=== PATIENT | male | born 1940 | race Caucasian/White ===

== ENCOUNTER 2017-03-20 03:04 | Inpatient (IN) ==
[2017-03-20] MEDS ORDERED: NS 1,000 ML IV ONE (03:13)
[2017-03-20] MEDS ORDERED: METOCLOPRAMIDE 10mg/2ml INJECTION IVP ONE (03:13)
--- NOTE | 2017-03-20 03:23 | Emergency Department Report ---
Dizziness HPI - General Stated Complaint: Dizzy, Fall Time Seen by Provider: 03/20/17 03:05 Source: patient, family, EMS Mode of arrival: EMS Limitations: no limitations - History of Present Illness HPI Narrative: Pt seen earlier in ER and diagnosed with ascending colitis. Pt was feeling much better after meds and refused any further treatment and went home. He was given Rx for pain and nausea. Tonight he had an episode of dizziness when he tried to go to the bathroom and his called EMS after he fell and she could not get him up. Initially patient refused transport, but when the patient was found to be progressive and persistently hypotensive, with presyncope again after going to the toilet, EMS personnel and the patient's convinced him come back in for evaluation. Patient was found to have 2 separate blood pressures under 90 systolic, no tachycardia, hypotension was associated with significant symptomatology of dizziness and lightheadedness. Patient was also thought to have a fever of 102 via skin temperature probe, but denies any fevers or chills. Patient also denies any areas of pain or tenderness after the fall. Blood sugar was elevated at 206, and 200 cc saline bolus was given in route. MD complaint: dizziness - Related Data Home Medications Medication Instructions Recorded Confirmed Rosuvastatin Calcium [Crestor] 20 mg PO HS #0 12/19/10 03/20/17 Tamsulosin HCl [Flomax] 0.4 mg PO HS #0 12/19/10 03/20/17 Insulin Lispro (Humalog) 150 unit SQ INS PUMP #0 01/28/14 03/20/17 Amlodipine Besylate 5 mg PO HS #0 03/18/14 03/20/17 Omeprazole 20 mg PO BID #0 03/18/14 03/20/17 Aspirin 81 mg PO DAILY #0 01/21/16 03/20/17 Febuxostat [Uloric] 80 mg PO DAILY #0 01/21/16 03/20/17 Spironolactone 25 mg PO DAILY #0 01/21/16 03/20/17 Carisoprodol 350 mg PO HS PRN #60 tab 04/09/16 03/20/17 APAP/Codeine 300/30 (#3) [Tylenol 1 tab PO Q4H PRN 03/19/17 03/20/17 with Codeine #3 (300/30)] Albuterol Sulfate [Proair Hfa] 1 puff INH BID PRN 03/19/17 03/20/17 Diclofenac [Voltaren] 1 gm TP DAILY PRN 03/19/17 03/20/17 Dutasteride [Avodart] 0.5 mg PO DAILY 03/19/17 03/20/17 Fluconazole [Diflucan] 100 mg PO DAILY 03/19/17 03/20/17 Furosemide [Lasix] 60 mg PO DAILY 03/19/17 03/20/17 Metoprolol Tartrate [Lopressor] 25 mg PO DAILY 03/19/17 03/20/17 Mirabegron [Myrbetriq] 25 mg PO HS 03/19/17 03/20/17 Nitroglycerin 0.4 mg SL Q5MIN3 PRN 03/19/17 03/20/17 Olopatadine HCl [Patanase] 1 spray NS DAILY PRN 03/19/17 03/20/17 Oxycodone/Apap 7.5/325 [Percocet 1 tab PO Q4H PRN 03/19/17 03/20/17 7.5/325] Pantoprazole Sodium [Protonix] 40 mg PO BID 03/19/17 03/20/17 Vitamin B Complex [Balanced B-100] 1 tab PO BID 03/19/17 03/20/17 Previous Rx's Medication Instructions Recorded Hydrocodone/APAP 5/325 [[place] 1 tab PO Q6H PRN #12 tab 03/19/17 5/325] Hyoscyamine Sulfate [Levsin-Sl] 0.125 mg SL Q6H PRN #20 tab.subl 03/19/17 MetroNIDAZOLE [Flagyl] 500 mg PO BID #14 tab 03/19/17 Ondansetron [Zofran Odt] 1 tab PO Q6HR PRN #12 tab 03/19/17 Allergies Allergy/AdvReac Type Severity Reaction Status Date / Time morphine Allergy Mild cardiac Verified 03/20/17 03:32 arrest adhesive Allergy Unknown MORE THAN Verified 03/20/17 03:32 24 HOURS BREAKS DOWN SKIN AND CAUSES ABSCESSES iodine AdvReac Unknown kidney Verified 03/20/17 03:32 issues metformin AdvReac Unknown kidney Verified 03/20/17 03:32 issues-states is an ANSAID NSAIDS (Non-Steroidal AdvReac Unknown kidney Verified 03/20/17 03:32 Anti-Inflamma issues Review of Systems All systems: reviewed and negative except as stated PFSH Patient Stated Medical History Cataracts Yes Hypertension Yes Other Cardiology Yes: 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 Appendix 1954 Prostate 1992. Lt Rotator cuff 1996 2009 Rt 2005. Laser Eye surg 2007. Lt TKA 2010. Gallbladder -. Vertoplasty spine -2015. Nose surg 2003. Carotid Artery Blockage 2011 & 2016 Family History: Family History (Last Reviewed 11/24/16 @ 13:44 by Josie Johnson Andrez) Unknown No problems noted. - Social History Smoking status: Former smoker Physical Exam - Limitations Limitations: no limitations - General General appearance: alert, obese - Normal Exams: Head:: Normocephalic without trauma Eyes:: Pupils are PERRLA w/ EOMI, No scleral icterus, irritation, or foreign bodies noted ENMT:: No facial trauma, nasal exudates, pharyngeal erythema, or exudates are noted Neck:: Full range of motion, without adenopathy, JVD, bruits or thyromegaly Chest/Respirations:: Clear all neal, with good airflow, and symmetry bilaterally Cardiovascular:: Regular rate and rhythm, without murmur or gallop, Pulses 2+ all extremities, capillary refill, <2 seconds all extremities Lymphatic:: No lymphadenopathy, or lymphedema noted Musculoskeletal:: No tenderness, or deformity noted, good range of motion, all extremities Integumentary:: No rashes, hives, or bruising noted, hair and nails, without abnormality Neurological:: Patient is alert, and oriented, cranial nerves, motor/sensory/ cerebellar, exams w/o gross deficits, to observation Psychiatric:: Patient exhibits, appropriate attention, emotion and affect - Abdominal Exam Abdominal exam: Present: soft, tenderness (minimal right lower quadrant tenderness, no guarding no rebounding), hyperactive bowel sounds. Absent: distention, guarding, rebound, organomegaly, trauma, incision, psoas sign, obturator sign, heel tap sign, Graham's sign, Rovsing's sign, tenderness at McBurney's Point, mass, pulsatile mass, hernia, scar Course Vital Signs Temperature 98.9 F 03/20/17 03:08 Pulse Rate 74 03/20/17 03:08 Respiratory Rate 14 03/20/17 03:08 Blood Pressure 96/53 03/20/17 03:08 Pulse Oximetry 98 03/20/17 03:08 Temperature 98.9 F 03/20/17 03:08 Pulse Rate 74 03/20/17 03:51 Respiratory Rate 18 03/20/17 03:51 Blood Pressure 126/60 03/20/17 03:51 Pulse Oximetry 96 03/20/17 03:51 Dizziness - MDM Narrative Medical decision making narrative: Patient given 1 L normal saline IV fluid bolus and Reglan 10 mg IV for nausea. - CBC shows significant shift into 29,000 white blood cells, elevated lactate at 4.1, and creatinine has gone from 1.7-2.6. After 1300 cc normal saline total in the ER, patient is doing much better, blood pressures normalized to 126/60. IV bolus up to 3300 cc was ordered through the ER, patient was also started on antibiotics including Cipro IV and Flagyl IV, and will be admitted inpatient to the medical floor to Dr. Zhang. - Lab Data Result diagrams: 03/20/17 03:20 03/20/17 03:20 Lab Results 03/20/17 03/20/17 Range/Units 03:20 03:20 WBC 29.1 H* D (4.5-11.0) T/MM3 RBC 5.04 (4.50-5.90) M/MM3 Hgb 14.5 (13.5-17.5) GM/DL Hct 43.7 (41-53) % MCV 86.7 (80-100) UM3 MCH 28.8 (26-34) UUG MCHC 33.2 (31-37) GM/DL RDW Std Deviation 42.5 (36.9-50.2) FL Plt Count 274 (130-400) T/MM3 MPV 11.1 (9.4-12.4) UM3 Immature Gran % (Auto) Not performed Neut % (Auto) Not performed Lymph % (Auto) Not performed [place] % (Auto) Not performed Eos % (Auto) Not performed Baso % (Auto) Not performed Neut # (Auto) Not performed Lymph # (Auto) Not performed [place] # (Auto) Not performed Eos # (Auto) Not performed Baso # (Auto) Not performed Abs Immat Gran (auto) Not performed Turbidity < 20 (0-20) Sodium 145 H (134-144) MEQ/L Potassium 3.6 (3.6-5) MEQ/L Chloride 104 (98-107) MEQ/L Carbon Dioxide 23 (22-30) MEQ/L Anion Gap 18 H (5-15) MEQ/L BUN 46.0 H (9-20) MG/DL Creatinine 2.6 H D (0.8-1.5) MG/DL GFR Calculation 24 BUN/Creatinine Ratio 18 (6-26) RATIO Glucose 155 H (75-110) MG/DL Calculated Osmolality 294 H (261-280) MOSM/KG Calcium 9.0 (8.4-10.2) MG/DL Icterus Index < 2 (0-7) Plasma Lactate 4.7 H* (0.6-2.2) MMOL/L Specimen Hemolysis 19 (0-25) Critical Care Time Critical Care Time: Yes Total Critical Care Time: 40 Attestation: Patient has severe sepsis, with hypotension, requiring fluid resuscitation aggressive diagnostic testing and therapeutic intervention including IV fluids, IV antibiotics, and close monitoring. Patient also had mild hypoxemia on arrival , and was given supplemental oxygen with ongoing oxygen saturation monitoring. Disposition Clinical Impression: Severe sepsis, Bacterial colitis Disposition: 02 To [facility] Acute Care Condition: Improved Prescriptions: No Action Tamsulosin HCl [Flomax] 0.4 mg PO HS #0 Rosuvastatin Calcium [Crestor] 20 mg PO HS #0 Insulin Lispro (Humalog) 150 unit SQ INS PUMP #0 Amlodipine Besylate 5 mg PO HS #0 Omeprazole 20 mg PO BID #0 Pantoprazole Sodium [Protonix] 40 mg PO BID Fluconazole [Diflucan] 100 mg PO DAILY Dutasteride [Avodart] 0.5 mg PO DAILY Oxycodone/Apap 7.5/325 [Percocet 7.5/325] 1 tab PO Q4H PRN PRN Reason: Pain APAP/Codeine 300/30 (#3) [Tylenol with Codeine #3 (300/30)] 1 tab PO Q4H PRN PRN Reason: Pain Furosemide [Lasix] 60 mg PO DAILY Metoprolol Tartrate [Lopressor] 25 mg PO DAILY Nitroglycerin 0.4 mg SL Q5MIN3 PRN PRN Reason: CHEST TIGHTNESS Vitamin B Complex [Balanced B-100] 1 tab PO BID Hyoscyamine Sulfate [Levsin-Sl] 0.125 mg SL Q6H PRN #20 tab.subl PRN Reason: Cramps MetroNIDAZOLE [Flagyl] 500 mg PO BID #14 tab Ondansetron [Zofran Odt] 1 tab PO Q6HR PRN #12 tab PRN Reason: Nausea Aspirin 81 mg PO DAILY #0 Febuxostat [Uloric] 80 mg PO DAILY #0 Spironolactone 25 mg PO DAILY #0 Carisoprodol 350 mg PO HS PRN #60 tab PRN Reason: Prn Orders Diclofenac [Voltaren] 1 gm TP DAILY PRN PRN Reason: Pain Albuterol Sulfate [Proair Hfa] 1 puff INH BID PRN PRN Reason: Prn Orders Olopatadine HCl [Patanase] 1 spray NS DAILY PRN PRN Reason: Prn Orders Mirabegron [Myrbetriq] 25 mg PO HS Hydrocodone/APAP 5/325 [[place] 5/325] 1 tab PO Q6H PRN #12 tab PRN Reason: Pain Referrals: Nu Bourne DO [Family Provider] - - Seen By: physician
--- OUTSIDE RECORDS SUMMARY | 2017-03-20 03:43 | External Medical Summary ---
:1940 Author Organization eClinicalWorks Care Team Providers Name Role Phone Ashli [place] Provider Role Unavailable Allergies, Adverse Reactions, Alerts Substance Reaction Event Type Tape 1/2"x10yd *medical Devices* Info Not Available Non Drug Allergy Morphine Derivatives Info Not Available Non Drug Allergy Nsaids Info Not Available Non Drug Allergy Problems Problem Type Condition Code Onset Dates Condition Status Problem Other specified counseling V65.49 Inactive Assessment Diabetes with ophthalmic 250.52 Active manifestations, type II or unspecified type, uncontrolled Problem Peripheral neuropathy 356.9 Active Problem Diabetic retinopathy 250.50 Active Problem History of diabetic ulcer of foot V12.29 Active Problem History of gout V12.29 Active Problem Diabetes with ophthalmic 250.52 Inactive manifestations, type II or unspecified type, uncontrolled Problem Hypertension 401.9 Active Problem Hyperlipidemia 272.4 Active Medications Medication Code Code Instructions Start End Status Dosage System Date Date Clobetasol [facility] 36590-75 0.05 % External not defined Propionate E 01-15 Mometasone Furoate [facility] 61402-89 0.1 % External not defined 70-46 Percocet [facility] 23551-56 5-325 MG Oral not defined 19-30 Avodart [facility] 44855-98 0.5 MG Oral 1 not defined 12-04 daily Losartan [facility] 49823-31 100-12.5 MG Oral not defined Potassium-HCTZ 77-22 1 daily protonix ND 0 Oral 1 tab Amlodipine [facility] 93962-93 10 MG Orally 1 tablet Besylate 02-20 Once a day Uloric [facility] 91327-87 80 MG Orally 1 tablet 16-30 Once a day Prilosec OTC [facility] 23696-05 20 MG Oral not defined 905 Flomax [facility] 11187-02 0.4 MG Oral 1 not defined 58-01 daily Robaxin-750 [facility] 50303-06 750 MG Oral not defined 49-63 Keflex [facility] 75031-96 500 MG Orally 1 capsule 81-02 Twice a day Hydrocortisone [facility] 49330-67 2.5 % External not defined 28-66 Solaraze [facility] 76287-83 3 % Transdermal not defined 07-07 Glucagon Emergency [facility] 82069-64 1 mg Injection August as directed inject as 2014 directed for severe hypoglycemia Patanase [facility] 76644-07 0.6 % Nasal not defined Crestor [facility] 70582-68 20 MG Oral 1 not defined 52-39 daily Humalog [facility] 24481-83 100 UNIT/ML via pump 02-06 Subcutaneous 115 u daily via insulin pump Tramadol HCl [facility] 58514-48 50 MG Oral every 1 58-01 six hours, as needed Tylenol with NDC 0 300-30 MG Oral not defined Codeine #3 Accu-Chek Chika NDC 0 1 In Vitro 8X's Mar 18, Plus daily DX: 250.50 2013 Diclofenac Sodium [facility] 01196-48 0.1 % Ophthalmic not defined 06-02 Lasix [facility] 95707-37 40 MG Oral 1 tablet 60-13 tewice daily OxyContin [facility] 92231-04 20 MG Orally 1 tablet 16-30 every 12 hrs Procedures Procedure Coding System Code Date Office Visit, Est Pt., Level 3 CPT-4 09684 August 13, 2014 GLYCATED HEMOGLOBIN TEST CPT-4 31224 August 13, 2014 Vital Signs Date/Time: August 13, 2014 Blood Pressure Systolic 108 mm Hg Weight 270 lbs Height 67 in BMI 42.28 Index Respiratory Rate 16 /min Cardiac Monitoring Heart Rate 84 /min Blood Pressure Diastolic 50 mm Hg Results No Known Results Summary Purpose eClinicalWorks Submission
--- OUTSIDE RECORDS SUMMARY | 2017-03-20 03:43 | External Medical Summary ---
:1940 Author Organization eClinicalWorks Care Team Providers Name Role Phone Ashli [place] Provider Role Unavailable Allergies, Adverse Reactions, Alerts Substance Reaction Event Type Tape 1/2"x10yd *medical Devices* Info Not Available Non Drug Allergy Morphine Derivatives Info Not Available Non Drug Allergy Nsaids Info Not Available Non Drug Allergy Problems Problem Type Condition ICD-9 Code Onset Dates Condition Status Problem Other specified counseling V65.49 Inactive Assessment Diabetes with ophthalmic 250.52 Active manifestations, type II or unspecified type, uncontrolled Problem Peripheral neuropathy 356.9 Active Problem Diabetic retinopathy 250.50 Active Problem History of diabetic ulcer of V12.29 Active foot Problem History of gout V12.29 Active Problem Diabetes with ophthalmic 250.52 Inactive manifestations, type II or unspecified type, uncontrolled Problem Hypertension 401.9 Active Problem Hyperlipidemia 272.4 Active Medications Medication Code Code Instructions Start End Status D[place] [address]-02 80 MG Orally 1 tablet 16-30 [place] [address]-42 3 % Transdermal not defined 03-01 [place] [address]-26 0.6 % Nasal not defined 32-30 [place] [address]-73 20 MG Oral not defined 905 [place] [address]-01 5-325 MG Oral not defined 19-[address] [facility] 78719-34 100 UNIT/ML via pump 10-01 Subcutaneous 115 [place] [address]-52 0.5 MG Oral 1 not defined 12-04 daily protonix NDC 0 Oral 1 tab Tylenol with NDC 0 300-30 MG Oral not defined Codeine #3 [place] [address]-96 0.05 % External not defined Propionate E 01-15 [place] [address]-63 20 MG Orally 1 tablet 16-30 every 12 [place] [address]-03 50 MG Oral every 1 58-01 six [place], [place] [address]-31 10 MG Orally 1 tablet Besylate 02-20 Once a day Lasix [facility] 52103-83 40 MG Oral 1 tablet 60-13 tewice daily Robaxin-[address] [facility] 19982-63 750 MG Oral not defined 49-63 Diclofenac Sodium [facility] 27513-43 0.1 % Ophthalmic not defined 06-02 [place] [address]-74 0.1 % External not defined 70-46 Accu-Chek Chika NDC 0 1 In Vitro 8X's Mar 18 Plus daily DX: 250.50 2013 Glucagon Emergency [facility] 95225-04 1 mg Injection August as directed inject as 2014 [place] [address]-63 0.4 MG Oral 1 not defined 58-01 daily Hydrocortisone [facility] 64452-31 2.5 % External not defined - Crestor [facility] 10624-27 20 MG Oral 1 not defined 52-39 daily Keflex [facility] 14638-36 500 MG Orally 1 capsule 81-02 Twice a day Procedures Procedure Coding System Code Date Billed by outside source CPT-4 NOBLL November 14, 2014 Office Visit, Est Pt., Level 3 CPT-4 54912 November 14, 2014 GLYCATED HEMOGLOBIN TEST CPT-4 75809 November 14, 2014 Vital Signs Date/Time: November 14, 2014 BMI 41.34 Index Weight 264 lbs Height 67 in Results Name Result Date Reference Range Unit Abnormality Flag Hemoglobin A1c (HbA1c) Microalbumin/Creatinine [place], [place] [id number] ----Microalbumin, Urine 3.7 [id number] 0.0-17.0 ug/mL ----Microalb/Creat Ratio 14.5 [id number] 0.0-30.0 mg/g creat ----Creatinine, Urine 25.6 [id number] 22.0-328.0 mg/dL Summary Purpose eClinicalWorks Submission
--- OUTSIDE RECORDS SUMMARY | 2017-03-20 03:44 | External Medical Summary ---
:1940 Author Organization eClinicalWorks Care Team Providers Name Role Phone Ashli [place] Provider Role Unavailable Allergies No Known Allergies Problems Problem Type Condition Code Onset Dates Condition Status Problem Diabetes with ophthalmic 250.52 Inactive manifestations, type II or unspecified type, uncontrolled Problem Other specified counseling V65.49 Inactive Problem History of diabetic ulcer of foot V12.29 Active Problem Peripheral neuropathy 356.9 Active Problem DM (diabetes mellitus), type 2, E11.39 Active uncontrolled w/ophthalmic complication Problem Hyperlipidemia 272.4 Active Problem History of gout V12.29 Active Problem Diabetic retinopathy 250.50 Active Problem Hypertension 401.9 Active Medications No Known Medications Results No Known Results Summary Purpose [employer] Submission
--- OUTSIDE RECORDS SUMMARY | 2017-03-20 03:44 | External Medical Summary ---
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 Medications Medication Code Code Instructions Start End Status Dosage System Date Date Tylenol with NDC 0 300-30 MG Oral 1 tablet Codeine #3 PRN Hydrocortisone [place] 57489-5 2.5 % External 1 application 028-66 PRN as needed Mometasone Furoate NDC 63094-6 0.1 % External not defined 470-46 Crestor NDC 87050-0 5 MG Orally 1 tablet 755-90 Once a day Flomax NDC 39125-3 0.4 MG Oral 1 not defined 058-01 daily Amlodipine NDC 18547-7 10 MG Orally 1 tablet Besylate 102-20 Once a day Uloric NDC 69086-9 80 MG Orally 1 tablet 516-30 Once a day Inset Infusion Set NDC 0 none change Feb 20, as directed 23" 9MM every 2 days as 2014 directed due to high insulin dose Patanase NDC 25638-9 0.6 % Nasal not defined 332-30 Solaraze NDC 91058-2 3 % Transdermal 1 application 803-01 Twice a day to affected area Percocet NDC 74087-0 5-325 MG Oral 1 tablet as 619-30 every 6 hrs needed protonix NDC 0 Oral once 1 tab daily Accu-Chek Spirit NDC 0 none change Feb 20, as directed Cartridge every 2 days 2014 due to high insulin dose Glucagon Emergency NDC 48725-2 1 mg Injection August as directed 031-01 inject as 2014 [place] [address]-1 100 UNIT/ML via pump 510-01 Subcutaneous 150 units daily as directed Prilosec OTC NDC 61742-1 20 MG Oral 1 tablet 5905 twice daily OxyContin NDC 31285-2 20 MG Orally 1 tablet 616-30 every 12 hrs Accu-Chek Chika NDC 0 1 In Vitro 8X's Mar 18, BG Plus daily 2013 Lasix NDC 77483-9 40 MG Oral Once 1 tablet 060-13 a day Clobetasol NDC 73420-9 0.05 % External not defined Propionate E 301-15 PRN Procedures Procedure Coding System Code Date Office Visit, Est Pt., Level 4 CPT-4 95009 November 28, 2015 GLYCATED HEMOGLOBIN TEST CPT-4 87989 November 28, 2015 Vital Signs Date/Time: November 28, 2015 Blood Pressure Systolic 130 mm Hg Weight 274.8 lbs Height 67 in BMI 43.04 Index Respiratory Rate 16 /min Cardiac Monitoring Heart Rate 74 /min Blood Pressure Diastolic 58 mm Hg Results Name Result Date Reference Range Unit Abnormality Flag Hemoglobin A1c (HbA1c) ----Hemoglobin A1c 8.0% [id number] Summary Purpose eClinicalWorks Submission
--- OUTSIDE RECORDS SUMMARY | 2017-03-20 03:44 | External Medical Summary ---
[...] Type Condition Code Onset Dates Condition Status Assessment Peripheral neuropathy 356.9 Active Assessment History of diabetic ulcer of foot V12.29 Active Assessment Diabetes with ophthalmic 250.52 Active manifestations, type II or unspecified type, uncontrolled Medications Medication Code Code Instructions Start End Status Dosage System Date Date Robaxin-[address] [facility] 10584-74 750 MG Oral not 49-10 defined Hydrocortisone [facility] 02901-63 2.5 % External not 28-66 defined Solaraze [facility] 70835-27 3 % Transdermal not 03-01 [place] [address]-72 0.05 % External not Propionate E 01-15 [place] [address]-66 0.1 % External not 70-46 [place] [address]-21 0.5 MG Oral 1 not 12-04 daily defined Uloric [facility] 20691-44 80 MG Orally 1 tablet 16-30 [place] [address]-69 0.1 % Ophthalmic not 25 defined protonix NDC 0 [place] [address]-68 40 MG Oral 1 1/2 not 60-13 [place] [address]-06 20 MG Oral 1 not 52-39 [place] [address]-61 100-12.5 MG Oral not Potassium-HCTZ 77-22 1 [place] [address]-68 0.6 % Nasal not 32-30 defined Tylenol with NDC 0 300-30 MG Oral not Codeine #[place] [address]-90 100 UNIT/ML via pump 10- Subcutaneous 112 u [place] [address]-37 10 MG Orally 1 tablet Besylate 02-20 Once a day Prilosec OTC [facility] 71753-82 20 MG Oral not 905 defined Percocet [facility] 82106-33 5-325 MG Oral not 19-30 defined Flomax [facility] 06382-10 0.4 MG Oral 1 not 58-01 daily defined Procedures Procedure Coding System Code Date GLYCATED HEMOGLOBIN TEST CPT-4 75210 Feb 04, 2014 Office Visit, Est Pt., Level 4 CPT-4 05282 Feb 04, 2014 Vital Signs Date/Time: Feb 04, 2014 Blood Pressure Systolic 102 mm Hg Weight 286 lbs Height 67 in BMI 44.79 Index Respiratory Rate 12 /min Cardiac Monitoring Heart Rate 60 /min Blood Pressure Diastolic 68 mm Hg Results Name Result Date Reference Range Unit Abnormality Flag Hemoglobin A1c (HbA1c) ----Hemoglobin A1c 6.7 [id number] Summary Purpose eClinicalWorks Submission
[2017-03-20] MEDS ORDERED: DEXTROSE 50% SYRINGE 50ml (1 AMP) IVP PRN (04:11)
[2017-03-20] MEDS ORDERED: GLUCOSE ORAL GEL 40% 37.5gm PO PRN (04:11)
[2017-03-20] MEDS ORDERED: MetroNIDAZOLE PB 500 MG/100 ML BAG IV SCH ×2 (04:15→14:00)
[2017-03-20] MEDS: SALINE FLUSH 10ml SYRINGE IVF PRN ×2 (04:15→22:22)
[2017-03-20] MEDS ORDERED: CIPROFLOXACIN PB 400 MG/200 ML BAG IV SCH (04:15)
[2017-03-20] MEDS: NS 1,000 ML IV SCH ×4 (04:21→13:26)
[2017-03-20] MEDS ORDERED: SALINE FLUSH 10ml SYRINGE IV PRN ×2 (05:04)
[2017-03-20] MEDS ORDERED: MORPHINE SULFATE 4mg INJECTION IVP PRN (05:04)
[2017-03-20 05:09] VITALS: BMI 43.7
--- NOTE | 2017-03-20 06:07 | History & Physical Report ---
History of Present Illness Date: 03/20/17 Chief complaint: Near syncope HPI: This is a 76 year old male who presents to the [facility] ER for a second time in the past 12 hours. He was discharged in the ER earlier after being seen with abdominal discomfort. He was diagnosed with colitis of his ascending colon and sent home with flagyl, zofran and [place]. He evidently was not interested in admission at that point in time per the ER physician.He apparently had some dizziness and a near syncopal spell at home. 911 was called. Upon EMS arrival, his blood pressure was 84 systolic. He had another near syncopal event while on the toilet and his blood pressure was reported at 79 systolic. He was brought back to the ER shortly thereafter. He received some IV fluids en route by EMS. Laboratory evaluation upon arrival back to the ER revealed elevated white blood cell count from earlier, renal injury and a lactic acid level of 4.7. He has been given IV cipro, flagyl, and a 30 ml/kg IVF bolus has been started. He has been admitted to the medical floor for further care. This encounter was performed via the use of telemedicine technology Review of Systems All systems PM: 10-point ROS was reviewed, no additional remarkable complaints except PFSH Patient Stated Medical History Cataracts Yes Hypertension Yes Other Cardiology Yes: known blockage "on side of heart" Diabetes Mellitus Type 2 Yes Clinic Medical History (Last Reviewed 11/24/16 @ 13:44 by RANDALL Morton) Primary osteoarthritis of right knee (Acute Medical) Neuropathy (Chronic Medical) Osteoporosis (Chronic Medical) Kidney disease (Chronic Medical) GERD (gastroesophageal reflux disease) (Chronic Medical) Cataracts, bilateral (Chronic Medical) Diabetes (Chronic Medical) Peripheral artery disease (Chronic Medical) High cholesterol (Chronic Medical) High blood pressure (Chronic Medical) Surgical History: Tonsils & Adenoids 1950. Appendix 1954. Prostate 1992. Lt Rotator cuff 1996& 2009 Rt rotator cuff 2005. Laser Eye surg 2007. Lt TKA 2010. Gallbladder 01-22-2016. Vertoplasty spine . Nose surg -2003. Carotid Artery Blockage 2011 & 2016 Family History: Family History (Last Reviewed 11/24/16 @ 13:44 by RANDALL Morton) Unknown No problems noted. - Social History Smoking status: Former smoker Medications Home Medications Medication Instructions Recorded Confirmed Type Rosuvastatin Calcium [Crestor] 20 mg PO HS #0 12/19/10 03/20/17 History Tamsulosin HCl [Flomax] 0.4 mg PO HS #0 12/19/10 03/20/17 History Insulin Lispro (Humalog) 150 unit SQ INS PUMP #0 01/28/14 03/20/17 History Amlodipine Besylate 5 mg PO HS #0 03/18/14 03/20/17 History Omeprazole 20 mg PO BID #0 03/18/14 03/20/17 History Aspirin 81 mg PO DAILY #0 01/21/16 03/20/17 History Febuxostat [Uloric] 80 mg PO DAILY #0 01/21/16 03/20/17 History Spironolactone 25 mg PO DAILY #0 01/21/16 03/20/17 History Carisoprodol 350 mg PO HS PRN #60 tab 04/09/16 03/20/17 History APAP/Codeine 300/30 (#3) [Tylenol 1 tab PO Q4H PRN 03/19/17 03/20/17 History with Codeine #3 (300/30)] Albuterol Sulfate [Proair Hfa] 1 puff INH BID PRN 03/19/17 03/20/17 History Diclofenac [Voltaren] 1 gm TP DAILY PRN 03/19/17 03/20/17 History Dutasteride [Avodart] 0.5 mg PO DAILY 03/19/17 03/20/17 History Fluconazole [Diflucan] 100 mg PO DAILY 03/19/17 03/20/17 History Furosemide [Lasix] 60 mg PO DAILY 03/19/17 03/20/17 History Metoprolol Tartrate [Lopressor] 25 mg PO DAILY 03/19/17 03/20/17 History Mirabegron [Myrbetriq] 25 mg PO HS 03/19/17 03/20/17 History Nitroglycerin 0.4 mg SL Q5MIN3 PRN 03/19/17 03/20/17 History Olopatadine HCl [Patanase] 1 spray NS DAILY PRN 03/19/17 03/20/17 History Oxycodone/Apap 7.5/325 [Percocet 1 tab PO Q4H PRN 03/19/17 03/20/17 History 7.5/325] Pantoprazole Sodium [Protonix] 40 mg PO BID 03/19/17 03/20/17 History Vitamin B Complex [Balanced B-100] 1 tab PO BID 03/19/17 03/20/17 History Allergies Allergy/AdvReac Type Severity Reaction Status Date / Time morphine Allergy Mild cardiac Verified 03/20/17 03:32 arrest adhesive Allergy Unknown MORE THAN Verified 03/20/17 03:32 24 HOURS BREAKS DOWN SKIN AND CAUSES ABSCESSES iodine AdvReac Unknown kidney Verified 03/20/17 03:32 issues metformin AdvReac Unknown kidney Verified 03/20/17 03:32 issues-states is an ANSAID NSAIDS (Non-Steroidal AdvReac Unknown kidney Verified 03/20/17 03:32 Anti-Inflamma issues Exam Vital Signs: Temperature 98.8 F 03/20/17 05:00 Pulse Rate 74 03/20/17 05:00 Respiratory Rate 24 03/20/17 05:00 Blood Pressure 140/62 H 03/20/17 05:00 Pulse Oximetry 97 03/20/17 05:00 Height/Weight/BMI: Height 1.68 m Weight 123 kg Body Mass Index 43.7 - Constitutional Present: no acute distress, somnolent - Routine HEENT Exam Head: Present: normocephalic, atraumatic - Routine Respiratory Exam Present: CTA bilaterally. Absent: accessory muscle use, dyspnea - Routine Cardiovascular Exam Present: S1, S2 - Routine Abdominal Exam Present: soft Comments: Morbidly obese - Routine Extremities Exam Absent: edema Results - Labs CBC & Chem 7: 03/20/17 10:56 03/20/17 10:56 Assessment and Plan (1) Septic shock Current visit: Yes Status: Acute (2) Severe sepsis Current visit: Yes Status: Acute (3) Bacterial colitis Current visit: Yes Status: Acute Assessment and Plan: Assesment Severe sepsis, colitis- present on admission Clinical dehydration secondary to above Syncope Acute knee injury on chronic kidney disease stage 3 secondary to pre-renal causes Insulin-dependent diabetes mellitus Diabetic peripheral neuropathy Peripheral arterial disease Hypertension by history Plan Patient will be admitted under full inpatient status to the medical floor. His BP has improved with IV fluid bolus. Repeat lactic acid level has been ordered for 7:45 a.m. this morning. Will need further reassessment thereafter. The large majority of his home medications have been held this morning. His prognosis is guarded at this time, but he is presently demonstrating improving clinical status. The arrival of his this morning will help delineate further history, as he is not terribly conversant this morning. DVT prophylaxis: SQ heparin Alessandro Zamorano M.D.: Dr. Zhang's note reviewed. Mr. Romero interviewed and examined. Old records reviewed. CC: Abdominal pain HPI: Mr. Romero a 76-year-old male with diabetes and multiple complications. He was seen in the emergency room yesterday afternoon for LLQ abdominal pain with nausea and vomiting at which time CT of the abdomen suggested to show segmental colitis and the patient was discharged home with Flagyl and symptomatic treatment. Later he became dizzy and had a syncopal episode at home when he tried to ambulate to the bathroom. His called EMS because she was unable to get him up independently. When EMS arrived the patient was hypotensive and had systolic blood pressures less than 90 on 2 occasions without tachycardia. He remained symptomatic while EMS was present but initially refused transportation to the emergency room. Eventually he agreed to transport due to persistent symptoms. EMS described temperature of 102 by skin probe. The patient reports he's felt cold but denies chills or sweats. Abdominal symptoms and left lower quadrant pain started 2 days ago and have been accompanied by some diarrhea, nausea and vomiting initially followed by dry heaves, poor oral intake, and decreased urine output with patient reporting no urine output since sometime yesterday. He denied preceding dysuria. Reports he's had a cough with some sputum production but has not felt short of breath. He's had prior knee replacement but has not had knee pain. When reevaluated in the emergency room yesterday evening he had marked leukocytosis with white count of 29.1 left shift and lactic acid of 4.7. Blood pressure stabilized after initial fluid bolus. IV antibiotics were initiated and full fluid bolus for septic shock was given prior to hospitalization. PH/SH/FH: agree with that recorded above by with addition of morbid obesity, small vessel CAD with EF 65% by recent cardiac catheterization, BPH. SH-patient does not drink alcohol, Dr. Nu Bourne his primary care physician , Dr. Yariel Duncan is his curer foam rubber, and Dr. Tamayo is his registered art therapist. His Nisha is his DPOA and the patient is a full code. FH-positive for diabetes mellitus ROS: 10 point review as previously reported-only symptom I elicited was numbness in lower extremities beyond those described above. EXAM: General-restless male, frequent repositions himself, 98.5, 95, 24, 105/67, 95%- 3 L HEENT-PERRL, EOMI without nystagmus, conjunctiva clear, sclera anicteric, conjugate gaze, facial structures symmetric, oropharynx dry, neck supple and without adenopathy Lungs-respirations nonlabored, good airflow, breath sounds diminished at the right base posteriorly Cardiac-regular rhythm, decreased heart tones Abd-obese, soft, mild diffuse tenderness without guarding, localized increased tenderness for lateral left lower quadrant but again no guarding present Ext-without edema; left knee without warmth or inflammation and can flex and extend knee without difficulty. Skin-hyperpigmentation lower extremities, abrasions on knuckles of hands; no generalized rash Neuro-cranial nerves 3-12 grossly intact, sensation grossly intact 4 extremities, MAEW, bursar equal, moving all extremities spontaneously/frequently Psych-fatigued, slightly irritable DATA: White count in the ER yesterday early afternoon was 15.5 with 2 bands increasing to 29.1 with 15 bands overnight and currently is 23.3 with 17% bands Hemoglobin 14.5-12.7 following hydration Currently potassium 3.3, phosphorus 1.4, anion gap currently 11 (18 on presentation overnight), creatinine has increased from 1.7 yesterday afternoon to 2.9, liver enzymes unremarkable, troponin 0.191 Lactic acid 4.7-4.9; procalcitonin 18.3 UA 1-3 WBC, +1 leukocyte esterase, negative ketones CT abdomen and pelvis reviewed by myself demonstrates no significant intra- abdominal pathology-nighthawk reading suggested slight thickening in the ascending colon and possibly rectosigmoid but formal reading is negative. My review questions slight rectal thickening but I can't appreciate colonic abnormalities elsewhere. There is no evidence of renal obstruction and CT was done without contrast. Chest x-ray pending EKG by my review demonstrates no acute process A/P: Septic shock-unknown source Acute renal failure/anuria Abdominal pain, possible colitis Hypoxia-new Diabetes mellitus with retinopathy, nephropathy, neuropathy, and peripheral vascular disease Hypophosphatemia, hypokalemia CAD Syncope Critically ill male, fluid bolus given for septic shock however lactic acid remains elevated. Transfer to the ICU for intensive monitoring. Central line to be placed-discussed with Dr. Guerra. Antibiotics expanded with initiation of vancomycin and Zosyn for sepsis of unknown primary. Cultures pending. Discontinue Cipro as nursing describes increased restlessness/irritability this morning. Continue fluid replacement, replace potassium/phosphorus. Bumex now, Syed catheter being placed. Monitor blood sugars every 2-4 hours. Repeat lactic acid in several hours. DVT Prophylaxis: SQ Heparin Resuscitation Status: Full Code - Time spent with patient Time with patient PN: other (75 minutes-critical care) Sepsis Assessment - Evaluation Possible source: GI tract/intra-abdominal, unknown Confirmed Suspected Infection: Yes SIRS Criteria: temperature > or equal to 100.4 (per EMS), WBC > or equal to 12, 000, Bands > or equal to 10% Severe Sepsis: SBP < 90 (x2 per EMS), lactate > or equal to 2.0 mg/dl, Creatinine >2.0 mg/dL, urine output <0.5 mL/kg/hr [id number] Septic Shock: Lactate > 4 mg/dL Hospital Course Summary Disclaimer: The visit summary below is not to be considered part of the above Progress Note. Hospital Course: 03/20/17 12:12 Septic shock-unknown primary Acute renal failure/anuria Abdominal pain, possible colitis Diabetes mellitus with retinopathy, nephropathy, neuropathy, and peripheral vascular disease Hypophosphatemia, hypokalemia CAD Syncope Critically ill male, fluid bolus given for septic shock however lactic acid remains elevated. Transfer to the ICU for intensive monitoring. Central line to be placed-discussed with Dr. Guerra. Antibiotics expanded with initiation of vancomycin and Zosyn for sepsis of unknown primary. Cultures pending. Discontinue Cipro as nursing describes increased restlessness/irritability this morning. Continue fluid replacement, replace potassium/phosphorus. Bumex now, Syed catheter being placed. Monitor blood sugars every 2-4 hours. Repeat lactic acid in several hours.
[2017-03-20] MEDS ORDERED: INSULIN PUMP MC SCH (08:00)
[2017-03-20] MEDS: HEPARIN SUB-Q 5,000 UNITS/0.5 ML INJECTION SQ SCH ×3 (09:52→17:36)
[2017-03-20] MEDS ORDERED: VANCOMYCIN - PHARMACY CONSULT MC ONE (10:16)
[2017-03-20] MEDS ORDERED: BUMETANIDE 2.5mg/10ml INJECTION IVP ONE ×3 (11:26→20:35)
--- NOTE | 2017-03-20 11:29 | Pharmacy Consult-Antibiotics ---
Pharmacy Consult-Vancomycin - Laboratory Information WBC 23.3 T/MM3 (4.5-11.0) H 03/20/17 10:56 BUN 48.0 MG/DL (9-20) H 03/20/17 10:56 Creatinine 2.9 MG/DL (0.8-1.5) H D 03/20/17 10:56 - Consult Information Consult noted by Dr Zamorano to begin vancomycin on Mr Romero, who is 76yo and has sepsis of an unknown origin. His serum creatinine is 2.6. Vancomycin 1500mg IV q36h is ordered. We will continue to monitor. Thank you.
[2017-03-20] MEDS: ONDANSETRON 4 MG/2 ML INJECTION IVP PRN ×2 (11:49→17:58)
[2017-03-20] MEDS: PIPERACILLIN/TAZOBACTAM 2.25 GM in NS 100 ML IV SCH ×3 (14:20→23:26)
[2017-03-20] MEDS: POTASSIUM PHOSPHATE IV SCH (14:21)
[2017-03-20] MEDS: NS IV SCH (14:21)
[2017-03-20] MEDS ORDERED: OLOPATADINE HCL PO PRN (17:11)
[2017-03-20] MEDS: PANTOPRAZOLE 40 MG INJECTION IVP SCH (17:38)
[2017-03-20] MEDS ORDERED: LEVOFLOXACIN PB 750 MG/150 ML BAG IV SCH (18:30)
[2017-03-20] MEDS: HYDROMORPHONE 2 MG/ML INJECTION IVP PRN (18:43)
[2017-03-20] MEDS ORDERED: ALBUTEROL 2.5mg/3ml (0.083%) NEB AEROSOL PRN (18:48)
[2017-03-20] MEDS ORDERED: ALBUTEROL/IPRATROPIUM 2.5mg-0.5mg/3ml NEB AEROSOL PRN (18:48)
[2017-03-20] MEDS ORDERED: CARISOPRODOL 350 MG TABLET PO PRN (18:49)
[2017-03-20] MEDS ORDERED: ACETAMINOPHEN 325 MG TABLET PO PRN (18:51)
[2017-03-20] MEDS ORDERED: METOCLOPRAMIDE 10mg/2ml INJECTION IVP PRN (18:51)
[2017-03-20] MEDS ORDERED: APAP/DIPHENHYDRAMINE 500 MG/25 MG TABLET PO SCH (21:00)
[2017-03-20] MEDS: INSULIN ASPART 100unit/ml INJECTION SQ PRN (22:21)
[2017-03-21] MEDS: INSULIN ASPART 100unit/ml INJECTION SQ PRN ×2 (00:48→04:24)
[2017-03-21] MEDS: ONDANSETRON 4 MG/2 ML INJECTION IVP PRN ×3 (00:48→11:56)
[2017-03-21] MEDS: SALINE FLUSH 10ml SYRINGE IVF PRN ×2 (00:49→04:19)
[2017-03-21] MEDS: HEPARIN SUB-Q 5,000 UNITS/0.5 ML INJECTION SQ SCH (00:54)
[2017-03-21] MEDS: HYDROCODONE/APAP 5mg/325mg TABLET PO PRN ×2 (01:30→08:35)
[2017-03-21] MEDS: NS IV SCH ×2 (02:19→06:56)
[2017-03-21] MEDS: POTASSIUM PHOSPHATE IV SCH ×2 (02:19→06:56)
[2017-03-21] MEDS ORDERED: ASPIRIN 325 MG TABLET PO SCH (05:37)
[2017-03-21] MEDS: PIPERACILLIN/TAZOBACTAM 2.25 GM in NS 100 ML IV SCH ×3 (05:41→18:59)
[2017-03-21] MEDS: NS 1,000 ML IV SCH ×2 (05:42→17:52)
[2017-03-21] MEDS ORDERED: ENOXAPARIN 120 MG/0.8 ML INJECTION SQ SCH (05:45)
[2017-03-21] MEDS ORDERED: FALL RISK - PHARMACY CONSULT MC ONE (07:28)
--- NOTE | 2017-03-21 07:39 | XRay Report ---
Indication: post IJ placement PROCEDURE: XR chest 1V: Encounter: Initial Comparison: January 23, 2017 Findings: Left subclavian central venous line in place. The tip cannot be definitively visualized. No gross pneumothorax. Hypoinflation with prominent interstitial markings again noted. Cardiomediastinal contours are stable. Impression: I cannot visualize the tip of the left subclavian central venous catheter. Repeat exam is recommended. .
--- NOTE | 2017-03-21 07:39 | Procedure Note ---
DATE OF PROCEDURE 03/20/2017 DIAGNOSIS BEFORE PROCEDURE Sepsis from unknown source. DIAGNOSIS AFTER PROCEDURE Sepsis from unknown source. PROCEDURE Insertion of left subclavian multilumen central venous catheter. SURGEON Dr. Guerra ANESTHESIA Local. DESCRIPTION OF OPERATION The patient was placed in his bed in the Intensive Care Unit. The patient was placed in Trendelenburg position. The right side of the neck, right supraclavicular area, right infraclavicular area, right shoulder, suprasternal notch area, left side of the neck, left supraclavicular area, left infraclavicular area and left shoulder were all prepped with ChloraPrep solution. Sterile drapes were placed. Skin at a percutaneous venipuncture site at the left infraclavicular area was infiltrated with 1% Xylocaine without epinephrine to provide local anesthesia. A small incision was made at this area. Percutaneous venipuncture of the left subclavian vein was then performed. The vein was entered easily on the first needlestick. There was a good return of dark red nonpulsatile blood. A flexible guidewire was passed through the needle and through the left subclavian vein down into the superior vena cava. A 7-Hungarian, triple-lumen, 20 cm long, radiopaque, polyurethane multilumen central venous catheter was flushed with heparinized saline solution. The multilumen central venous catheter was inserted into the left subclavian vein and down into the superior vena cava with Seldinger technique. A Biopatch antimicrobial dressing was placed around the multilumen central venous catheter at the skin entrance site. The multilumen central venous catheter was secured to the skin adjacent to the catheter insertion site with 3- 0 silk sutures. A sterile field was maintained. The position of the patient was changed from Trendelenburg position to a sitting position. A portable upright chest x-ray was performed. The chest x-ray was reviewed. The chest x- ray did appear to show good position of the multilumen central venous catheter and no evidence of pneumothorax. A Tegaderm dressing was applied to the multilumen central venous catheter insertion site. Sterile technique was maintained throughout procedure. The patient did appear to tolerate the procedure well. [facility], [place]
[2017-03-21] MEDS ORDERED: ALBUTEROL/IPRATROPIUM 2.5mg-0.5mg/3ml NEB AEROSOL PRN (08:15)
[2017-03-21] MEDS: PANTOPRAZOLE 40 MG INJECTION IVP SCH (08:55)
[2017-03-21] MEDS ORDERED: ASPIRIN 81 MG CHEWABLE TABLET PO SCH (09:00)
[2017-03-21] MEDS: HYDROMORPHONE 2 MG/ML INJECTION IVP PRN ×2 (09:00→15:37)
--- NOTE | 2017-03-21 09:50 | Progress Note ---
- Date 03/21/17 Subjective: He complains of pain all over. No specific site is worse. Says he feels lethargic after taking a [place] 5 about an hour ago. Says he has kept liquids down. He says his breathing is OK. Reports a cough, nonproductive. Says he had dry heaves overnight. Objective Vital signs: Temperature 97.8 F 03/21/17 08:07 Pulse Rate 80 03/21/17 08:30 Respiratory Rate 30 H 03/21/17 08:30 Blood Pressure 109/54 03/21/17 08:30 Pulse Oximetry 95 03/21/17 08:30 Rhythm: Normal Sinus Rhythm Height/Weight/BMI: Height 5 ft 6 in Weight 127.3 kg Body Mass Index 43.7 - Constitutional Present: well nourished, well developed - Routine HEENT Exam Eye: Present: EOMI ENT: Present: mucous membranes moist, dentition normal - Routine Respiratory Exam Present: decreased breath sounds, crackles - Routine Cardiovascular Exam Present: RRR. Absent: murmur - Routine Abdominal Exam Present: soft, tenderness. Absent: rebound, guarding - Routine Extremities Exam Present: edema Comments: trace - Routine Skin Exam Present: dry, warm - Routine Neurological Exam Present: alert, oriented X3, CN II-XII intact - Routine Psychiatric Exam Present: normal affect Results - Labs CBC & Chem 7: 03/21/17 04:25 03/21/17 14:51 Microbiology Results: Microbiology 03/20/17 21:00 Port/Picc Blood Culture - Preliminary Culture Initiated - Results Pending 03/20/17 21:09 Port/Picc Blood Culture - Preliminary Culture Initiated - Results Pending - ABG Interpretation ABG results: 03/20/17 20:08 ABG pH 7.290 L ABG pCO2 44 ABG pO2 55 L ABG HCO3 21 L ABG Total CO2 22.6 L ABG O2 Saturation 84.0 L ABG Base Excess -5.3 L Assessment and Plan (1) Severe sepsis Current visit: Yes Status: Acute (2) Bacterial colitis Current visit: Yes Status: Acute (3) Septic shock Current visit: Yes Status: Acute Assessment and Plan: Septic shock-unknown source E. coli bacteremia Acute renal failure Abdominal pain, possible colitis Diabetes mellitus with retinopathy, nephropathy, neuropathy, and peripheral vascular disease Hyperphosphatemia AMI Syncope Acute hypoxic respiratory failure Continue Levaquin, Zosyn, Vanco. WBC up to 34.7 with 22% bands. Lactic acid down to 2.0. Consult Dr. Philippe. BCx postive in 1 or 2. Repeat BCx. Procalcitonin up to 34. Creatinine is up but now having urine output. UO slowing down after Bumex last night. Continuing IVF. Repeat Bumex. Avoid hypotension. Patient wants to manage his blood sugars with his insulin pump. He says his will bring the program he needs to improve the control. Now with hyperphosphatemia s/p replacement and d/t worsening renal function. Continue pain meds for abdominal pain. Consult Dr. Tamayo for elevated troponin. Patient is septic and with worsening renal function. He denies chest pain. ASA, lovenox. Holding BB d/t hypotension. Continue O2, breathing treatments. He refused BiPAP last night. Patient's oxygenation is worsening. IVF dc'd. Another dose of iv bumex given. Cr up to 3.9. 700 ml urine out over 10 hours. d/w Dr. Dima Duncan. Plan for transfer. Cannot do dialysis here if that is needed. Dr. Don Blanco is accepting the pt at [facility] Sepsis Assessment - Evaluation Possible source: unknown Severe Sepsis: SpO2 <90% or ventilated, lactate > or equal to 2.0 mg/dl, Creatinine >2.0 mg/dL, urine output <0.5 mL/kg/hr [id number] Hospital Course Summary Disclaimer: The visit summary below is not to be considered part of the above Progress Note. Septic shock-unknown source E. coli bacteremia Acute renal failure Abdominal pain, possible colitis Diabetes mellitus with retinopathy, nephropathy, neuropathy, and peripheral vascular disease Hyperphosphatemia CAD with elevated troponin Syncope Continue Levaquin, Zosyn, Vanco. WBC up to 34.7 with 22% bands. Lactic acid down to 2.0. Consult Dr. Philippe. BCx postive in 1 or 2. Repeat BCx. Procalcitonin up to 34. Creatinine is up but now having urine output. UO slowing down after Bumex last night. Continuing IVF. Repeat Bumex. Avoid hypotension. Patient wants to manage his blood sugars with his insulin pump. He says his will bring the program he needs to improve the control. Now with hyperphosphatemia s/p replacement and d/t worsening renal function. Continue pain meds for abdominal pain. Consult Dr. Tamayo for elevated troponin. Patient is septic and with worsening renal function. He denies chest pain. ASA, lovenox. Holding BB d/t hypotension. Continue O2, breathing treatments. He refused BiPAP last night. Hospital Course: 03/20/17 12:12 Septic shock-unknown primary Acute renal failure/anuria Abdominal pain, possible colitis Diabetes mellitus with retinopathy, nephropathy, neuropathy, and peripheral vascular disease Hypophosphatemia, hypokalemia CAD Syncope Critically ill male, fluid bolus given for septic shock however lactic acid remains elevated. Transfer to the ICU for intensive monitoring. Central line to be placed-discussed with Dr. Guerra. Antibiotics expanded with initiation of vancomycin and Zosyn for sepsis of unknown primary. Cultures pending. Discontinue Cipro as nursing describes increased restlessness/irritability this morning. Continue fluid replacement, replace potassium/phosphorus. Bumex now, Syed catheter being placed. Monitor blood sugars every 2-4 hours. Repeat lactic acid in several hours. 03/21/17 10:29 Septic shock-unknown source E. coli bacteremia Acute renal failure Abdominal pain, possible colitis Diabetes mellitus with retinopathy, nephropathy, neuropathy, and peripheral vascular disease Hyperphosphatemia CAD with elevated troponin Syncope Continue Levaquin, Zosyn, Vanco. WBC up to 34.7 with 22% bands. Lactic acid down to 2.0. Consult Dr. Philippe. BCx postive in 1 or 2. Repeat BCx. Procalcitonin up to 34. Creatinine is up but now having urine output. UO slowing down after Bumex last night. Continuing IVF. Repeat Bumex. Avoid hypotension. Patient wants to manage his blood sugars with his insulin pump. He says his will bring the program he needs to improve the control. Now with hyperphosphatemia s/p replacement and d/t worsening renal function. Continue pain meds for abdominal pain. Consult Dr. Tamayo for elevated troponin. Patient is septic and with worsening renal function. He denies chest pain. ASA, lovenox. Holding BB d/t hypotension. Continue O2, breathing treatments. He refused BiPAP last night. 03/21/17 10:31
--- NOTE | 2017-03-21 10:19 | XRay Report ---
Indication: hypoxia PROCEDURE: XR chest 1V: Encounter: Initial Comparison: March 20, 2017 Findings: Left subclavian central venous line in place. Again the tip is quite difficult to localize but may be within the lower SVC. No pneumothorax. Lungs are hyperinflated with evidence of at least moderate pulmonary edema. Small pleural effusions. Cardiac silhouette remains enlarged. Right basilar airspace consolidation. Impression: Moderate pulmonary edema. Possible superimposed right lower lobe pneumonia or aspiration. .
[2017-03-21] MEDS ORDERED: CLOPIDOGREL 75 MG TABLET PO ONE (14:04)
--- NOTE | 2017-03-21 14:15 | Cardiology Consult Note ---
History of Present Illness Consult reason: known to you Chief complaint: eleavted troponin History of present illness: 76 yo wm with known CAD and DM admitted with falls and syncope.He was initially seen with an acute GI illness treated with Flagyl and Rx was apparently never started.pt in ED was admitted to CCU /hospitalist service and found to have sepsis NEGRO dehydration and resp failure. He also grew E Coli in blood. denies and cp or back pain. He is "hurting all over"and cannot specify a location . EKG 03/20 evening ,showed NSR inferior ST elevation with reciprocal St depression ,Q in III,EKG this morning improved with mostly just inferior inverted T wave minimal residual ST elevation ,almost back to baseline and no ST diagnostic elevation or depression . I was asked to see pt this morning in consultation d/t elevated troponin about 2. pt was sen about 11 am.He denies cp or upper back/arm or neck pain. He just hurtes "all over" .he s not feeling well. He is weak. His urine output is poor and is requiring O2 NC for resp distress. pt is being tretaed with initial fluids diuretics breathing Rx and iV ATB. He is also on full dose Lovenox adjusted for renal Fx and ASA. pt has known cad with good LVFX treated medically d/t small vessel disease and pt being a poor surgical candidate d/t poor functional capacity caused by chronic low back pain .Pt told me that he much preferred conservative medical Rx. He never had any angina and his presentation was more of a gradual excercise intolerance and SOA with diastolic CHF. he "never felt bad enough to go through open heart surgery" when we discussed that option following his heart cath. Review of Systems All systems PM: 10-point ROS was reviewed, no additional remarkable complaints except - Constitutional Constitutional: Present: weakness - Cardiovascular Cardiovascular: Present: syncope, dyspnea on exertion, as per HPI - Respiratory Respiratory: Present: dyspnea, wheezing - Gastrointestinal Gastrointestinal: Absent: coffee ground emesis, hematemesis, hematochezia - Psychiatric Psychiatric: Absent: anxiety, depression PFSH Patient Stated Medical History Cataracts Yes Hypertension Yes Other Cardiology Yes: known blockage "on side of heart" Diabetes Mellitus Type 2 Yes Clinic Medical History (Last Reviewed 11/24/16 @ 13:44 by Josie Johnson Andrez) Severe sepsis (Acute Medical) Bacterial colitis (Acute Medical) Septic shock (Acute Medical) Primary osteoarthritis of right knee (Acute Medical) Neuropathy (Chronic Medical) Osteoporosis (Chronic Medical) Kidney disease (Chronic Medical) GERD (gastroesophageal reflux disease) (Chronic Medical) Cataracts, bilateral (Chronic Medical) Diabetes (Chronic Medical) Peripheral artery disease (Chronic Medical) High cholesterol (Chronic Medical) High blood pressure (Chronic Medical) Colitis (Inactive Medical) Surgical History: Tonsils & Adenoids 1950. Appendix 1954. Prostate 1992. Lt Rotator cuff 1996& 2009 Rt rotator cuff 2005. Laser Eye surg 2007. Lt TKA 2010. Gallbladder 01-22-2016. Vertoplasty spine . Nose surg . Carotid Artery Blockage 2011 & 2016 Family History: Family History (Last Reviewed 11/24/16 @ 13:44 by Josie Johnson Andrez) Unknown No problems noted. DM - Social History Smoking status: Former smoker Household members: spouse service: Yes ([email or web address]) Current residence: Apartment/Private Home Medications Home Medications Medication Instructions Recorded Confirmed Type Rosuvastatin Calcium [Crestor] 20 mg PO HS #0 12/19/10 03/20/17 History Tamsulosin HCl [Flomax] 0.4 mg PO HS #0 12/19/10 03/20/17 History Insulin Lispro (Humalog) 150 unit SQ INS PUMP #0 01/28/14 03/20/17 History Amlodipine Besylate 5 mg PO HS #0 03/18/14 03/20/17 History Omeprazole 20 mg PO BID #0 03/18/14 03/20/17 History Aspirin 81 mg PO DAILY #0 01/21/16 03/20/17 History Febuxostat [Uloric] 80 mg PO DAILY #0 01/21/16 03/20/17 History Spironolactone 25 mg PO DAILY #0 01/21/16 03/20/17 History Carisoprodol 350 mg PO HS PRN #60 tab 04/09/16 03/20/17 History APAP/Codeine 300/30 (#3) [Tylenol 1 tab PO Q4H PRN 03/19/17 03/20/17 History with Codeine #3 (300/30)] Albuterol Sulfate [Proair Hfa] 1 puff INH BID PRN 03/19/17 03/20/17 History Diclofenac [Voltaren] 1 gm TP DAILY PRN 03/19/17 03/20/17 History Dutasteride [Avodart] 0.5 mg PO DAILY 03/19/17 03/20/17 History Fluconazole [Diflucan] 100 mg PO DAILY 03/19/17 03/20/17 History Furosemide [Lasix] 60 mg PO DAILY 03/19/17 03/20/17 History Metoprolol Tartrate [Lopressor] 25 mg PO DAILY 03/19/17 03/20/17 History Mirabegron [Myrbetriq] 25 mg PO HS 03/19/17 03/20/17 History Nitroglycerin 0.4 mg SL Q5MIN3 PRN 03/19/17 03/20/17 History Olopatadine HCl [Patanase] 1 spray NS DAILY PRN 03/19/17 03/20/17 History Oxycodone/Apap 7.5/325 [Percocet 1 tab PO Q4H PRN 03/19/17 03/20/17 History 7.5/325] Pantoprazole Sodium [Protonix] 40 mg PO BID 03/19/17 03/20/17 History Vitamin B Complex [Balanced B-100] 1 tab PO BID 03/19/17 03/20/17 History Allergies Allergy/AdvReac Type Severity Reaction Status Date / Time morphine Allergy Mild cardiac Verified 03/20/17 03:32 arrest adhesive Allergy Unknown MORE THAN Verified 03/20/17 03:32 24 HOURS BREAKS DOWN SKIN AND CAUSES ABSCESSES iodine AdvReac Unknown kidney Verified 03/20/17 03:32 issues metformin AdvReac Unknown kidney Verified 03/20/17 03:32 issues-states is an ANSAID NSAIDS (Non-Steroidal AdvReac Unknown kidney Verified 03/20/17 03:32 Anti-Inflamma issues Exam Vital signs: Temperature 97.8 F 03/21/17 08:07 Pulse Rate 79 03/21/17 10:30 Respiratory Rate 28 H 03/21/17 13:40 Blood Pressure 126/60 03/21/17 10:30 Pulse Oximetry 97 03/21/17 13:40 - Constitutional mild distress, other (acutely ill) - Routine HEENT Exam Head: Present: normocephalic ENT: Present: mucous membranes dry - Routine Neck Exam Present: carotid bruit (L), normal carotid upstroke. Absent: JVD, lymphadenopathy, thyromegaly - Routine Respiratory Exam Present: wheezes (B ) - Routine Cardiovascular Exam Present: RRR, S1 (distant s1/s2), no murmur, S4 - Routine Abdominal Exam Present: soft, distended (mildly ). Absent: normoactive bowel sounds ( decreased ), organomegaly - Routine Extremities Exam Present: edema (trace B ankles). Absent: cyanosis, clubbing - Routine Skin Exam Present: intact. Absent: cyanosis, erythema - Routine Neurological Exam Present: alert, oriented X3, CN II-XII intact, moving all extremities, vision grossly intact, hearing grossly intact, normal speech. Absent: motor deficit, hemineglect, facial asymmetry - Routine Psychiatric Exam Present: normal affect, normal thought process, cooperative Results 03/21/17 04:25 03/21/17 14:51 Cardiac Enzymes 03/20/17 03/20/17 03/21/17 Range/Units 17:01 22:56 04:25 AST 40 (17-59) U/L Troponin I 0.343 H D 0.585 H D (0-0.12) ng/ml 03/21/17 Range/Units 04:25 AST (17-59) U/L Troponin I 1.920 H D (0-0.12) ng/ml CBC 03/21/17 Range/Units 04:25 WBC 34.7 H* D (4.5-11.0) T/MM3 RBC 3.96 L (4.50-5.90) M/MM3 Hgb 11.4 L (13.5-17.5) GM/DL Hct 35.7 L (41-53) % Plt Count 172 (130-400) T/MM3 Comprehensive Metabolic Panel 03/20/17 03/20/17 03/21/17 Range/Units 17:01 22:56 04:25 Sodium 142 142 143 (134-144) MEQ/L Potassium 4.3 D 4.1 4.6 (3.6-5) MEQ/L Chloride 110 H 109 H 109 H (98-107) MEQ/L Carbon Dioxide 22 21 L 19 L (22-30) MEQ/L BUN 51.0 H* 54.0 H* 56.0 H* (9-20) MG/DL Creatinine 3.2 H D 3.3 H 3.6 H D (0.8-1.5) MG/DL Glucose 166 H 171 H 187 H (75-110) MG/DL Calcium 7.6 L 7.2 L 7.1 L (8.4-10.2) MG/DL AST 40 (17-59) U/L ALT 41 (21-72) U/L Alkaline Phosphatase 63 (38-126) U/L Total Protein 5.7 L (6.3-8.2) G/DL Albumin 2.9 L (3.5-5.0) G/DL Intake and Output 03/20/17 03/21/17 03/21/17 22:59 06:59 14:59 Intake Total 2246.666 / 2246.666 1789.9610 / 1789.9610 202.083 / 202.083 Output Total 685 / 685 107 / 107 145 / 145 Balance 1561.666 / 7593.840 2258.9610 / 1682.9610 57.083 / 57.083 Intake: IV 1466.666 / 0954.186 6766.9610 / 1789.9610 202.083 / 202.083 Levofloxacin Pb 750 mg In 150 / 150 150 ml @ 100 mls/hr IV Q48H MAGEN Rx#:[id number] NS 500ml 500 ml @ 999.9 500 / 500 1000.00 / 1000.00 mls/hr IV .Q30M MAGEN Rx#: [id number] Ns 1,000 ml @ 125 mls/hr 6.25 / 6.25 102.083 / 102.083 IV .Q8H MAGEN Rx#:[id number] POTASSIUM PHOSPHATE (mEq) 716.666 / 716.835 844.2856 / 583.7110 20 meq In Ns 1,000 ml @ 125 mls/hr IV .Q8H3M MAGEN Rx#:[id number] Piperacillin/Tazobactam 2 100 / 100 200 / 200 100 / 100 .25 gm In Ns 100 ml @ 200 mls/hr IV Q6H MAGEN Rx#: [id number] Oral 780 / 780 Output: Urine Amount (Catheter) 685 / 685 107 / 107 145 / 145 Other: Urine Appearance Cloudy Cloudy Cloudy Sediment Sediment Small Blood Clots Hematuria Urine Color Yellow Dark Sakina Yellow Red Brown Weight 127.3 kg Patient Weight 03/22/17 06:59 Weight 127.3 kg - Imaging and Cardiology Stress echo: other (pharm. stress nuclear scan showed reversible ischmia which prompted heart cath ,see report) Cardiac cath: other (july 2016 3 v CAD OOAN41-42% LAD diffuse mid 4-50% stenosis,very large Ramus 40-50%, totally occluded small RCA and LCX at their mid segment see report.NL LVFX) Imaging & Cardiology Narrative: 03/22/17 11:14 B carotid doppler 50-69% LICA stenosis 2017 warranted observation and risk factor control 03/22/17 11:19 CXR pulm congestion echo reviewed at the bedside while being aqcuired. - EKG Interpretation EKG: sinus rhythm Assessment and Plan - Assessment and Plan acute inferior CO currently free from angina or ST elevation sepsis E Coli bactreremia resp failure w wheezing NEGRO acute multisystem failure/SIRS/sepsis DM asymptomatic carotid artery stenosis critocally ill pt . for his acute CO , medical Rx d/t acute morbidites as above, not a candidate for immediate invasive w/u. ASA Plavix Lovenox statin Rx no BB now d/t wheezing/resp failure concur with attempt at diuresis echo attn valves serial trop until peak and repeat EKG tomorrow dw pt and and hospitilast thank you Hospital Course Summary Disclaimer: The visit summary below is not to be considered part of the above Progress Note. Hospital Course: 03/20/17 12:12 Septic shock-unknown primary Acute renal failure/anuria Abdominal pain, possible colitis Diabetes mellitus with retinopathy, nephropathy, neuropathy, and peripheral vascular disease Hypophosphatemia, hypokalemia CAD Syncope Critically ill male, fluid bolus given for septic shock however lactic acid remains elevated. Transfer to the ICU for intensive monitoring. Central line to be placed-discussed with Dr. Guerra. Antibiotics expanded with initiation of vancomycin and Zosyn for sepsis of unknown primary. Cultures pending. Discontinue Cipro as nursing describes increased restlessness/irritability this morning. Continue fluid replacement, replace potassium/phosphorus. Bumex now, Syed catheter being placed. Monitor blood sugars every 2-4 hours. Repeat lactic acid in several hours. 03/21/17 10:29 Septic shock-unknown source E. coli bacteremia Acute renal failure Abdominal pain, possible colitis Diabetes mellitus with retinopathy, nephropathy, neuropathy, and peripheral vascular disease Hyperphosphatemia CAD with elevated troponin Syncope Continue Levaquin, Zosyn, Vanco. WBC up to 34.7 with 22% bands. Lactic acid down to 2.0. Consult Dr. Philippe. BCx postive in 1 or 2. Repeat BCx. Procalcitonin up to 34. Creatinine is up but now having urine output. UO slowing down after Bumex last night. Continuing IVF. Repeat Bumex. Avoid hypotension. Patient wants to manage his blood sugars with his insulin pump. He says his will bring the program he needs to improve the control. Now with hyperphosphatemia s/p replacement and d/t worsening renal function. Continue pain meds for abdominal pain. Consult Dr. Tamayo for elevated troponin. Patient is septic and with worsening renal function. He denies chest pain. ASA, lovenox. Holding BB d/t hypotension. Continue O2, breathing treatments. He refused BiPAP last night. 03/21/17 10:31
[2017-03-21] MEDS ORDERED: BUMETANIDE 2.5mg/10ml INJECTION IVP ONE (16:01)
--- NOTE | 2017-03-21 16:38 | Pharmacy Consult-Antibiotics ---
Pharmacy Consult-Vancomycin - Laboratory Information WBC 34.7 T/MM3 (4.5-11.0) H* D 03/21/17 04:25 BUN 61.0 MG/DL (9-20) H* 03/21/17 14:51 Creatinine 3.9 MG/DL (0.8-1.5) H D 03/21/17 14:51 Procalcitonin 34.60 NG/ML H* 03/21/17 04:25 - Consult Information Vancomycin consult: day 2 76 y.o. male with renal failure and diagnosis of Sepsis with unknown origin. Vancomycin per pharmacy protocol ordered empirically with Cipro. goal Vancomycin trough = 15 to 20 mcg/ml Due to renal failure a random Vancomycin level was obtained Vancomycin random = 9.77 mcg/ml, SCr = 3.9 mg/dl. SCr continues to rise up from 3.6 mg/dL this am. Since Vanco level is below our trough range, Will give Vancomycin 1,000 mg IV now and IV q36hrs. Will continue to monitor and make adjustments accordingly. Thank you.
--- NOTE | 2017-03-21 17:23 | XRay Report ---
Indication: hypoxia PROCEDURE: XR chest 1V: Encounter: Initial Comparison: March 21, 2017 at 0601 Findings: Motion artifact. Worsening in severe pulmonary edema. Continued airspace consolidation in the lower lobes, right greater than left. No pneumothorax. Heart size and mediastinal contours are stable. Left subclavian line. Impression: Worsening edema. .
--- NOTE | 2017-03-21 18:31 | Discharge Summary ---
Discharge Information Date of admission: 03/20/17 04:04 Attending Physician: Aron Silva IV, MD Primary care physician: Nu Bourne DO Consults: 03/20/17 12:18 Physician Consult [CONS] Routine Consulting Provider: Henri Guerra Reason For Exam: central line Ordering Provider has Notified Survey Chief: Yes 03/21/17 10:03 Physician Consult [CONS] Routine Consulting Provider: Dharmesh Tamayo Reason For Exam: elevated troponin Ordering Provider has Notified Survey Chief: Yes 03/21/17 10:04 Physician Consult [CONS] Routine Consulting Provider: Liliana Philippe Reason For Exam: sepsis Ordering Provider has Notified Survey Chief: Yes - Discharge Diagnosis (1) Severe sepsis Status: Acute (2) Bacterial colitis Status: Acute (3) Septic shock Status: Acute - Laboratory Labs: 03/21/17 04:25 03/21/17 14:51 - Microbiology Microbiology 03/21/17 10:19 Peripheral/Iv Start Blood Culture - Preliminary Culture Initiated - Results Pending 03/21/17 10:29 Peripheral/Iv Start Blood Culture - Preliminary Culture Initiated - Results Pending 03/20/17 21:00 Port/Picc Blood Culture - Preliminary Culture Initiated - Results Pending 03/20/17 21:09 Port/Picc Blood Culture - Preliminary Culture Initiated - Results Pending History of Present Illness HPI: This is a 76 year old male who presents to the [facility] ER for a second time in the past 12 hours. He was discharged in the ER earlier after being seen with abdominal discomfort. He was diagnosed with colitis of his ascending colon and sent home with agnieszka lee and Marii. He evidently was not interested in admission at that point in time per the ER physician.He apparently had some dizziness and a near syncopal spell at home. 911 was called. Upon EMS arrival, his blood pressure was 84 systolic. He had another near syncopal event while on the toilet and his blood pressure was reported at 79 systolic. He was brought back to the ER shortly thereafter. He received some IV fluids en route by EMS. Laboratory evaluation upon arrival back to the ER revealed elevated white blood cell count from earlier, renal injury and a lactic acid level of 4.7. He has been given IV cipro, flagyl, and a 30 ml/kg IVF bolus has been started. He has been admitted to the medical floor for further care. This encounter was performed via the use of telemedicine technology Objective Vital signs: Temperature 97.8 F 03/21/17 08:07 Pulse Rate 79 03/21/17 10:30 Respiratory Rate 28 H 03/21/17 13:40 Blood Pressure 126/60 03/21/17 10:30 Pulse Oximetry 97 03/21/17 13:40 Rhythm: Normal Sinus Rhythm Height/Weight/BMI: Height 5 ft 6 in Weight 127.3 kg Body Mass Index 43.7 Hospital Course This is a general summary of the patient's hospital course. For more details refer to the complete medical record. Hospital course: 76 year old male who presented with a near syncopal episode. He was transferred to CCU for monitoring for septic shock. He had E. coli in 1 of 2 blood cultures. He was started on zosyn, vanco, levaquin. His BP responded to fluid boluses and lactate came down from 2.5 to 2.0. Procalcitonin has gone up from 18.3 to 34.6 and WBC increased from 23.3 to 34.7. He has had worsening hypoxia. He refused BiPAP overnight. AM CXR showed moderate pulmonary edema. As O2 had to be increased today, IVF was stopped, and Bumex 2 mg iv was given twice. Over 10 hours he had 700 ml of urine. On repeat lab his creatinine had continued up and was 3.9. He is on 12L HFNC. Patient may need dialysis so transfer to [facility] was arranged. Patient has also had an AMI. His troponin has trended up from 0.[address] Bhupendra Tamayo was consulted. Discharge Plan - Discharge Disposition Disposition: 02 To [facility] Acute Care *Condition: Improved Reason For Visit (Visit label in EMR): sepsis - Discharge Medications *Discharge Medications: No Action Tamsulosin HCl [Flomax] 0.4 mg PO HS #0 Rosuvastatin Calcium [Crestor] 20 mg PO HS #0 Insulin Lispro (Humalog) 150 unit SQ INS PUMP #0 Amlodipine Besylate 5 mg PO HS #0 Omeprazole 20 mg PO BID #0 Pantoprazole Sodium [Protonix] 40 mg PO BID Fluconazole [Diflucan] 100 mg PO DAILY Dutasteride [Avodart] 0.5 mg PO DAILY Oxycodone/Apap 7.5/325 [Percocet 7.5/325] 1 tab PO Q4H PRN PRN Reason: Pain APAP/Codeine 300/30 (#3) [Tylenol with Codeine #3 (300/30)] 1 tab PO Q4H PRN PRN Reason: Pain Furosemide [Lasix] 60 mg PO DAILY Metoprolol Tartrate [Lopressor] 25 mg PO DAILY Nitroglycerin 0.4 mg SL Q5MIN3 PRN PRN Reason: CHEST TIGHTNESS Vitamin B Complex [Balanced B-100] 1 tab PO BID Hyoscyamine Sulfate [Levsin-Sl] 0.125 mg SL Q6H PRN #20 tab.subl PRN Reason: Cramps MetroNIDAZOLE [Flagyl] 500 mg PO BID #14 tab Ondansetron [Zofran Odt] 1 tab PO Q6HR PRN #12 tab PRN Reason: Nausea Aspirin 81 mg PO DAILY #0 Febuxostat [Uloric] 80 mg PO DAILY #0 Spironolactone 25 mg PO DAILY #0 Carisoprodol 350 mg PO HS PRN #60 tab PRN Reason: Prn Orders Diclofenac [Voltaren] 1 gm TP DAILY PRN PRN Reason: Pain Albuterol Sulfate [Proair Hfa] 1 puff INH BID PRN PRN Reason: Prn Orders Olopatadine HCl [Patanase] 1 spray NS DAILY PRN PRN Reason: Prn Orders Mirabegron [Myrbetriq] 25 mg PO HS Hydrocodone/APAP 5/325 [[place] 5/325] 1 tab PO Q6H PRN #12 tab PRN Reason: Pain - Discharge Packet/Instructions *Diet: npo *Activity: bedrest *Pain Management/Treatment: NA *Wound Care: NA *Expected Signs/Symptoms: NA *Notify Physician if: NA *During Business Hours Contact: NA *After Business Hours Contact: NA *Pending Lab/Results: No Pending Lab - Referrals/Follow Up *Referrals/Follow Up: Nu Bourne DO [Family Provider] - - Patient Handouts - Dismissal Complete Discharge Instructions are:: Complete
[2017-03-21 19:22] VITALS: TEMP 99.2; O2SAT 93
[2017-03-21] MEDS ORDERED: ATORVASTATIN 40 MG TABLET PO SCH (21:00)
[2017-03-21 21:26] VITALS: BP 114/58; PULSE 100; RESP 31
[2017-03-22] MEDS ORDERED: ENOXAPARIN 120 MG/0.8 ML INJECTION SQ SCH (06:00)
[2017-03-22] MEDS ORDERED: CLOPIDOGREL 75 MG TABLET PO SCH (09:00)
--- NOTE | 2017-03-22 21:10 | Echocardiogram ---
DATE OF STUDY 03/21/2017 INDICATIONS Acute MN. E. coli bacteremia. Respiratory failure. Renal failure. TECHNICAL QUALITY Technically fair 2D, M-mode, Doppler echocardiographic images were submitted for interpretation. I viewed the images at the time of image acquisition at the bedside. Preliminary report at that time was used in patient's clinical care. FINDINGS 1. CARDIAC CHAMBERS: All cardiac chamber measurements are normal. The left atrium measures 3.2 cm. Left ventricle measures 5.3 cm. RV size and contractility appear normal. The aortic root diameter is normal. 2. LEFT VENTRICLE: Wall thickness is normal, measuring 9.5 mm in the posterior wall, 11 mm in the septal wall. Wall motion analysis showed hyperdynamic lateral wall. There appears to be moderate inferior wall hypokinesis present. Left ventricular systolic function appears preserved in the low-normal range. Ejection fraction is visually estimated about 50%-55%. 3. VALVES: The aortic valve is trileaflet and exhibits moderate sclerosis at the tips of the leaflets. Some calcification thickening is also present. Valve opening appears preserved. Mitral valve exhibits annular calcification posteriorly, particularly heavy. Leaflets appear sclerotic . Valve opening appears normal. Tricuspid valve structure and motion appear normal. Normal valve excursion. Within the limitation of this study I don't see any independent mobile masses on any of the visualized valves which would suggest vegetation. Diastolic function parameters show a normal E/A ratio of 1.5. 4. DOPPLER: Trace mitral regurgitation. Trace tricuspid regurgitation. Trace pulmonic regurgitation. Mitral stenosis study shows mean pressure gradient of 4 mmHg, maximum gradient of 10 mmHg. These findings suggest mild mitral stenosis. Peak flow velocity at the aortic valve level 1.77 m/sec with mean pressure gradient of 7 mmHg and calculated aortic valve area of 2.14 cm/2 indicative of no significant aortic stenosis. Trace aortic regurgitation. 5. No evidence of pericardial effusion, intracardiac masses, thrombi, vegetations or shunts. 6. IVC is not well seen. 7. Systolic PA pressure is estimated at 39-44 mmHg consistent with mild pulmonary hypertension. IMPRESSION 1. Normal cardiac chamber size. 2. Preserved LV systolic function. EF 50%-55% with inferior and septal wall hypokinesis. 3. Moderately calcified aortic and mitral valves with hemodynamics of mild mitral stenosis, trace mitral regurgitation and trace aortic regurgitation, none of hemodynamic significance. 4. Mild pulmonary hypertension. 5. No echocardiographic evidence of vegetation. Transesophageal echocardiogram may be considered if clinically indicated. MTDD
== END 2017-03-21 20:10 | disposition short-term general hospital (02) | DRG 871 ==
LOC: ED 03:04 → SUATTDRO 04:04 → MED 04:04 → CCU 12:03
PROVIDERS: ADMIT Hospitalist; ATTEND Hospitalist